=== PATIENT | male | born 1940 | race Two or more races ===

== ENCOUNTER 2020-06-30 12:54 | Inpatient (IN) | payer OTHER ==
[~2020-06-30] VITALS: Ht 170.2 cm; Wt 163.0 kg
[2020-06-30] MEDS ORDERED: TAMS0.4C (13:04)
[2020-06-30] MEDS ORDERED: LISINOPRIL5 MG (13:05)
[2020-07-01] MEDS ORDERED: FINASTERIDE5 MG (08:35)
[2020-07-01] MEDS ORDERED: STIOLTO RESPIMAT4 GM (08:35)
[2020-07-01] MEDS ORDERED: METOPROLOL TART50 MG (08:36)
[2020-07-01] MEDS ORDERED: KETOROLAC TROMET5 ML (08:36)
[2020-07-01] MEDS ORDERED: ALENDRONATE SOD70 MG (08:36)
[2020-07-01] MEDS ORDERED: PREDNISOLONE ACE5 ML (08:36)
[2020-07-01] MEDS ORDERED: CICLOPIROX (08:36)
[2020-07-04] MEDS ORDERED: MEDROLPACK PO (17:10)
[2020-07-04] MEDS ORDERED: TUSSIN MUC100 MG/5 M PO (17:10)
[2020-07-04] MEDS ORDERED: AMLODIPINE BESYL5 MG PO (17:10)
[2020-07-04] MEDS ORDERED: TAMS0.4C PO (17:10)
[2020-07-04] MEDS ORDERED: AMOX-CLAV 875-1 EAC1 PO (17:10)
[2020-07-04] MEDS ORDERED: PROTONIX40 MG PO (17:10)
[2020-07-04] MEDS ORDERED: INTESTINEX680 M1 PO (17:10)
== END 2020-07-04 18:32 | disposition home or self-care (01) | DRG 192 ==
LOC: ER 12:54 → MEDI 23:09
PROVIDERS: ADMIT Internal Medicine; ATTEND Internal Medicine
PROC: 3E0F7SF Introduction of Other Gas into Respiratory Tract, Via Natural or Artificial Opening (ICD-10-PCS; principal; 2020-07-01)
DX: J44.1 Chronic obstructive pulmonary disease with (acute) exacerbation (principal); Z95.0 Presence of cardiac pacemaker

== ENCOUNTER 2021-03-01 13:42 | Inpatient (IN) | payer OTHER ==
[~2021-03-01] VITALS: Ht 167.6 cm; Wt 49.0 kg
[~2021-03-01 13:42] MED LIST: ALENDRONATE SOD70 MG; AMLODIPINE BESYL5 MG PO; AMOX-CLAV 875-1 EAC1 PO; CICLOPIROX; FINASTERIDE5 MG; INTESTINEX680 M1 PO; KETOROLAC TROMET5 ML; LISINOPRIL5 MG; MEDROLPACK PO; METOPROLOL TART50 MG; PREDNISOLONE ACE5 ML; PROTONIX40 MG PO; STIOLTO RESPIMAT4 GM; TAMS0.4C; TAMS0.4C PO; TUSSIN MUC100 MG/5 M PO
[2021-03-13] MEDS ORDERED: ALENDRONATE SOD70 MG (08:50)
[2021-03-13] MEDS ORDERED: KETOROLAC TROMET5 M1 (08:50)
[2021-03-13] MEDS ORDERED: VITAMIN D3250 MCG (08:51)
[2021-03-13] MEDS ORDERED: AMLODIPINE BESYL5 MG (08:51)
[2021-03-18] MEDS ORDERED: TAMS0.4C PO (15:00)
[2021-03-18] MEDS ORDERED: PROSCAR5 MG PO (15:01)
== END 2021-03-18 16:57 | disposition home or self-care (01) | DRG 371 ==
LOC: ER 13:42 → MEDJ 19:00 → MEDI 03-06 16:45 → MEDJ 03-11 11:10 → MEDI 03-16 17:18
PROVIDERS: ADMIT Internal Medicine; ATTEND Internal Medicine
PROC: BW21ZZZ Computerized Tomography (CT Scan) of Abdomen and Pelvis (ICD-10-PCS; principal; 2021-03-01)
PROC: B246ZZZ Ultrasonography of Right and Left Heart (ICD-10-PCS; 2021-03-02)
PROC: 3E0F7GC Introduction of Other Therapeutic Substance into Respiratory Tract, Via Natural or Artificial Opening (ICD-10-PCS; 2021-03-02)
PROC: 0W9B30Z Drainage of Left Pleural Cavity with Drainage Device, Percutaneous Approach (ICD-10-PCS; 2021-03-03)
PROC: 30233N1 Transfusion of Nonautologous Red Blood Cells into Peripheral Vein, Percutaneous Approach (ICD-10-PCS; 2021-03-05)
PROC: BB4BZZZ Ultrasonography of Pleura (ICD-10-PCS; 2021-03-09)
PROC: BW25ZZZ Computerized Tomography (CT Scan) of Chest, Abdomen and Pelvis (ICD-10-PCS; 2021-03-09)
PROC: BW40ZZZ Ultrasonography of Abdomen (ICD-10-PCS; 2021-03-13)
PROC: BW21ZZZ Computerized Tomography (CT Scan) of Abdomen and Pelvis (ICD-10-PCS; 2021-03-16)
DX: K68.12 Psoas muscle abscess (principal); J16.8 Pneumonia due to other specified infectious organisms; J91.8 Pleural effusion in other conditions classified elsewhere; J44.1 Chronic obstructive pulmonary disease with (acute) exacerbation; Z20.822 Contact with and (suspected) exposure to COVID-19; Z95.0 Presence of cardiac pacemaker; D50.0 Iron deficiency anemia secondary to blood loss (chronic); T39.395A Adverse effect of other nonsteroidal anti-inflammatory drugs [NSAID], initial encounter

== ENCOUNTER 2021-05-19 08:00 | Outpatient (CLI) | payer OTHER ==
[~2021-05-19 08:00] MED LIST changes: +AMLODIPINE BESYL5 MG; +KETOROLAC TROMET5 M1; +PROSCAR5 MG PO; +VITAMIN D3250 MCG
== END 2021-05-19 08:30 | disposition home or self-care (01) ==
LOC: PPH VACUNA 08:00
PROVIDERS: ATTEND Emergency Medicine Pediatric Emergency Medicine
DX: Z23 Encounter for immunization (principal)

== ENCOUNTER 2021-05-26 06:05 | Day surgery (SDC) | payer OTHER ==
[2021-05-26] MEDS ORDERED: BACTRIM DS TAB1 EACH PO (09:09)
[2021-05-26] MEDS ORDERED: TAMS0.4C PO (09:10)
== END 2021-05-26 13:20 | disposition home or self-care (01) ==
LOC: CIR.AMB 06:05
PROVIDERS: ATTEND Surgery
DX: N21.0 Calculus in bladder (principal); N40.0 Benign prostatic hyperplasia without lower urinary tract symptoms; I11.0 Hypertensive heart disease with heart failure; I50.1 Left ventricular failure, unspecified; Z95.0 Presence of cardiac pacemaker; J43.9 Emphysema, unspecified; Z20.822 Contact with and (suspected) exposure to COVID-19